=== PATIENT | female | born 1970 | race American Indian/Alaskan Native ===

== ENCOUNTER 2021-06-15 14:19 | Emergency (ER) | payer OTHER ==
--- NOTE | 2021-06-15 15:17 | Emergency Department Report ---
ED Female HPI - General Chief complaint: Vaginal Bleeding Stated complaint: MENSTRAL ISSUES Time Seen by Provider: 06/15/21 15:01 Source: patient Mode of arrival: Ambulatory Limitations: No Limitations - History of Present Illness Initial comments: Patient is a 50-year-old female presents emergency room complaints of heavy vaginal bleeding that began 2 weeks ago. She states over the last few months her menstrual cycles have become very irregular and she believes she may be perimenopausal. She states typically with her menstrual cycles she has bleeding for 3 to 5 days. She states that she last saw a cloth printing back tender a year ago. she states that she has never had an abnormal Pap smear. Patient states that she has an appointment with a cloth printing back tender on 06/27/2021. She states that she is changing her pad approximately every 30 minutes. she states that she began having generalized weakness and had fatigue. She denies any fever, nausea, vomiting, diarrhea, urinary symptoms, abnormal vaginal discharge. No past medical history. No allergies to medications. - Related Data Previous Rx's Medication Instructions Recorded Last Taken Type Docusate Sodium [Colace] 100 mg PO BID #60 capsule 06/15/21 Unknown Rx Ferrous Sulfate [Ferrous Sulfate 324 mg PO DAILY #30 tablet. 06/15/21 Unknown Rx 324 MG] medroxyPROGESTERone ACETATE 10 mg PO QDAY 10 Days #10 tablet 06/15/21 Unknown Rx [Provera] Allergies Allergy/AdvReac Type Severity Reaction Status Date / Time No Known Allergies Allergy Unverified 06/15/21 15:56 ED Review of Systems ROS: Stated complaint: MENSTRAL ISSUES Other details as noted in HPI Comment: All other systems reviewed and negative ED Past Medical Hx - Past Medical History Previous Medical History?: No - Surgical History Past Surgical History?: No - Medications Home Medications: Home Medications Medication Instructions Recorded Confirmed Last Taken Type Docusate Sodium [Colace] 100 mg PO BID #60 capsule 06/15/21 Unknown Rx Ferrous Sulfate [Ferrous Sulfate 324 mg PO DAILY #30 tablet. 06/15/21 Unknown Rx 324 MG] medroxyPROGESTERone ACETATE 10 mg PO QDAY 10 Days #10 tablet 06/15/21 Unknown Rx [Provera] ED Physical Exam - General Limitations: No Limitations General appearance: alert, in no apparent distress - Head Head exam: Present: atraumatic, normocephalic - Eye Eye exam: Present: normal appearance - ENT ENT exam: Present: mucous membranes moist - Respiratory Respiratory exam: Present: normal lung sounds bilaterally. Absent: respiratory distress, wheezes, rales, rhonchi, stridor, chest wall tenderness, accessory muscle use, decreased breath sounds, prolonged expiratory - Cardiovascular Cardiovascular Exam: Present: regular rate, normal rhythm, normal heart sounds. Absent: systolic murmur, diastolic murmur, rubs, gallop - GI/Abdominal GI/Abdominal exam: Present: soft, normal bowel sounds. Absent: distended, tenderness, guarding, rebound, rigid - Neurological Exam Neurological exam: Present: alert, oriented X3 - Psychiatric Psychiatric exam: Present: normal affect, normal mood - Skin Skin exam: Present: warm, dry, intact ED Course Vital Signs 06/15/21 06/15/21 14:30 15:52 Temperature 98.1 F Pulse Rate 107 H 80 Respiratory 16 14 Rate Blood Pressure 117/84 115/76 [Left] O2 Sat by Pulse 98 100 Oximetry ED Medical Decision Making - Lab Data Result diagrams: 06/15/21 15:11 06/15/21 15:11 Lab Results 06/15/21 06/15/21 06/15/21 Range/Units 15:11 15:11 15:11 WBC 8.5 (4.5-11.0) K/mm3 RBC 2.75 L (3.65-5.03) M/mm3 Hgb 8.5 L (10.1-14.3) gm/dl Hct 25.5 L (30.3-42.9) % MCV 93 (79-97) fl MCH 31 (28-32) pg MCHC 33 (30-34) % RDW 14.6 (13.2-15.2) % Plt Count 293 (140-440) K/mm3 Lymph % (Auto) 23.1 (13.4-35.0) % [place] % (Auto) 4.2 (0.0-7.3) % Eos % (Auto) 1.0 (0.0-4.3) % Baso % (Auto) 0.9 (0.0-1.8) % Lymph # (Auto) 2.0 (1.2-5.4) K/mm3 [place] # (Auto) 0.4 (0.0-0.8) K/mm3 Eos # (Auto) 0.1 (0.0-0.4) K/mm3 Baso # (Auto) 0.1 (0.0-0.1) K/mm3 Seg Neutrophils % 70.8 H (40.0-70.0) % Seg Neutrophils # 6.0 (1.8-7.7) K/mm3 Sodium 135 L (137-145) mmol/L Potassium 3.4 L (3.6-5.0) mmol/L Chloride 100.8 (98-107) mmol/L Carbon Dioxide 24 (22-30) mmol/L Anion Gap 14 mmol/L BUN 16 (7-17) mg/dL Creatinine 0.7 (0.6-1.2) mg/dL Estimated GFR > 60 ml/min BUN/Creatinine Ratio 23 % Glucose 96 (65-100) mg/dL Calcium 8.9 (8.4-10.2) mg/dL Total Bilirubin < 0.20 (0.1-1.2) mg/dL AST 13 (5-40) units/L ALT 10 (7-56) units/L Alkaline Phosphatase 86 (35-129) units/L Total Protein 6.3 (6.3-8.2) g/dL Albumin 3.7 L (3.9-5) g/dL Albumin/Globulin Ratio 1.4 % HCG, Quant < 2 (0-4) mIU/mL - Medical Decision Making Patient is a 50-year-old female presents emergency room complaints of heavy vaginal bleeding that began 2 weeks ago. She states over the last few months h er menstrual cycles have become very irregular and she believes she may be perimenopausal. She states typically with her menstrual cycles she has bleeding for 3 to 5 days. She states that she last saw a cloth printing back tender a year ago. she states that she has never had an abnormal Pap smear. Patient states that she has an appointment with a cloth printing back tender on 06/27/2021. She states that she is changing her pad approximately every 30 minutes. she states that she began having generalized weakness and had fatigue. She denies any fever, nausea, vomiting, diarrhea, urinary symptoms, abnormal vaginal discharge. No past medical history. No allergies to medications. Initial vitals with mild tachycardia which improved to normal upon repeat. Patient has no abdominal tenderness on exam. Patient has been in the emergency department for a couple of hours and is only had to change her pad 1 time. Labs are stable. Hemoglobin is 8.5. Patient has mild hypokalemia, repeated with K-Dur. Patient given prescription for Provera, ferrous sulfate, Colace. discussed the importance of outpatient MILL CRANE OPERATOR follow-up regarding AUB. advised pt Please take medication as prescribed. Please follow-up with your primary care doctor. Please follow-up with your MILL CRANE OPERATOR. Return to emergency room for any new or worsening symptoms. Critical care attestation.: If time is entered above; I have spent that time in minutes in the direct care of this critically ill patient, excluding procedure time. ED Disposition Clinical Impression: Hypokalemia Anemia Qualifiers: Anemia type: unspecified type Qualified Code(s): D64.9 - Anemia, unspecified Menorrhagia Qualifiers: Menorrhagia type: with irregular cycle Qualified Code(s): N92.1 - Excessive and frequent menstruation with irregular cycle Disposition: 01 HOME / SELF CARE / HOMELESS Is pt being admited?: No Does the pt Need Aspirin: No Condition: Stable Instructions: Hypokalemia, Menorrhagia Additional Instructions: Please take medication as prescribed. Please follow-up with your primary care doctor. Please follow-up with your MILL CRANE OPERATOR. Return to emergency room for any new or worsening symptoms. Prescriptions: Docusate Sodium [Colace] 100 mg PO BID #60 capsule Ferrous Sulfate [Ferrous Sulfate 324 MG] 324 mg PO DAILY #30 tablet. medroxyPROGESTERone ACETATE [Provera] 10 mg PO QDAY 10 Days #10 tablet Referrals: your, primary care doctor [Other] - 3-5 Days your, yardage control clerk [Other] - 3-5 Days Time of Disposition: 15:50 Print Language: AZERI
[2021-06-15 15:32] LABS: Basophils # (Auto) 0.1 K/mm3 (0.0-0.1); Basophils % (Auto) 0.9 % (0.0-1.8); Eosinophils # (Auto) 0.1 K/mm3 (0.0-0.4); Hematocrit 25.5 % (30.3-42.9); Hemoglobin 8.5 gm/dl (10.1-14.3); Lymphocytes % (Auto) 23.1 % (13.4-35.0); Mean Corpuscular HGB Conc 33 % (30-34); Mean Corpuscular Volume 93 fl (79-97); Monocytes # (Auto) 0.4 K/mm3 (0.0-0.8); Monocytes % (Auto) 4.2 % (0.0-7.3); Platelet Count 293 K/mm3 (140-440); Red Blood Count 2.75 M/mm3 (3.65-5.03); Red Cell Distribution Width 14.6 % (13.2-15.2)
[2021-06-15 15:44] LABS: Alanine Aminotransferase 10 units/L (7-56); Albumin 3.7 g/dL (3.9-5); Blood Urea Nitrogen 16 mg/dL (7-17); Calcium 8.9 mg/dL (8.4-10.2); Hemolysis Index 9
[2021-06-15] MEDS ORDERED: POTASSIUM CHLORIDE ER 20 MEQ TAB PO ONE (15:46)
[2021-06-15 15:47] LABS: BUN/Creatinine Ratio 23
[2021-06-15 15:53] VITALS: BP 115/76
== END 2021-06-15 16:33 | disposition home or self-care (01) ==
LOC: ED 14:19
DX: N92.0 Excessive and frequent menstruation with regular cycle (principal); E87.6 Hypokalemia; D64.9 Anemia, unspecified
CPT/HCPCS: 36415; 80053; 84702; 85025; 99283

== ENCOUNTER 2022-04-18 11:01 | Emergency (ER) | payer OTHER ==
[2022-04-18 14:15] LABS: Mucus,Urine FEW /HPF; WBC,Urine < 1.0 /HPF (0.0-6.0)
[2022-04-18 14:29] LABS: Bilirubin,Urine Negative (Negative); Blood,Urine Negative (Negative); Color,Urine Straw (Yellow)
[2022-04-18 14:30] LABS: HCG Qualitative,Urine Negative (Negative); Protein,Urine 300 mg/dL mg/dL (Negative)
--- NOTE | 2022-04-18 15:25 | XRay Report ---
ABDOMEN 1 VIEW(S) INDICATION / CLINICAL INFORMATION: abdominal pain, unable to have bm. COMPARISON: None available. FINDINGS: TUBES / LINES: None. BOWEL GAS PATTERN: There is moderate fecal matter throughout the colon and rectum. No dilated bowel i s appreciated. FREE AIR / EXTRALUMINAL GAS: None seen. ADDITIONAL FINDINGS: No significant additional findings. IMPRESSION: Moderate fecal retention in the colon Signer Name: Elgin Verde Jr, MD Signed: 04/18/2022 3:21 PM Workstation Name: [id number]
[2022-04-18] MEDS ORDERED: MAGNESIUM CITRATE 300 ML ORAL LIQD PO ONE (15:59)
--- NOTE | 2022-04-18 16:01 | Emergency Department Report ---
ED Abdominal Pain HPI - General Chief Complaint: Abdominal Pain Stated Complaint: CONSTIPATION Time Seen by Provider: 04/18/22 12:57 Source: patient Mode of arrival: Ambulatory Limitations: No Limitations - History of Present Illness Initial Comments: 51 yo black female with a pmh of HTN and HLD presents to ED for the evaluation of lower abdominal pain. She states that she has not been able to have a bm for the past 2-3 days and she usually has at least 1 bm daily. She states that she has had some nausea but denies fever, dysuria, and vaginal discharge. Of note, she states that she recently started taking iron pills. MD Complaint: abdominal pain -: days(s) (2) Location: LLQ Radiation: none Migration to: no migration Severity: moderate Severity scale (0 -10): 8 Quality: aching Consistency: intermittent Associated Symptoms: nausea, constipation. denies: vomiting, fever, chills, dysuria, hematemesis, hematochezia, melena, hematuria, anorexia, syncope - Related Data Previous Rx's Medication Instructions Recorded Last Taken Type Docusate Sodium [Colace] 100 mg PO BID #60 capsule 06/15/21 Unknown Rx Ferrous Sulfate [Ferrous Sulfate 324 mg PO DAILY #30 tablet.dr 06/15/21 Unknown Rx 324 MG] medroxyPROGESTERone ACETATE 10 mg PO QDAY 10 Days #10 tablet 06/15/21 Unknown Rx [Provera] Polyethylene Glycol 3350 [Miralax] 17 g PO DAILY #1 bottle 04/18/22 Unknown Rx Allergies Allergy/AdvReac Type Severity Reaction Status Date / Time No Known Allergies Allergy Unverified 06/15/21 15:56 ED Review of Systems ROS: Stated complaint: CONSTIPATION Other details as noted in HPI Comment: All other systems reviewed and negative Constitutional: denies: chills, fever Respiratory: denies: cough, shortness of breath Cardiovascular: denies: chest pain, palpitations Gastrointestinal: abdominal pain, nausea. denies: vomiting, diarrhea, hematemesis, melena, hematochezia Genitourinary: denies: urgency, dysuria, frequency, hematuria, discharge Musculoskeletal: denies: back pain Neurological: denies: headache, weakness ED Past Medical Hx - Past Medical History Previous Medical History?: Yes Hx Hypertension: Yes Additional medical history: hdl - Medications Home Medications: Home Medications Medication Instructions Recorded Confirmed Last Taken Type Docusate Sodium [Colace] 100 mg PO BID #60 capsule 06/15/21 Unknown Rx Ferrous Sulfate [Ferrous Sulfate 324 mg PO DAILY #30 tablet.dr 06/15/21 Unknown Rx 324 MG] medroxyPROGESTERone ACETATE 10 mg PO QDAY 10 Days #10 tablet 06/15/21 Unknown Rx [Provera] Polyethylene Glycol 3350 [Miralax] 17 g PO DAILY #1 bottle 04/18/22 Unknown Rx ED Physical Exam - General Limitations: No Limitations General appearance: alert, in no apparent distress - Head Head exam: Present: atraumatic, normocephalic - Eye Eye exam: Present: normal appearance. Absent: conjunctival injection - Neck Neck exam: Present: normal inspection. Absent: lymphadenopathy - Respiratory Respiratory exam: Present: normal lung sounds bilaterally. Absent: respiratory distress, wheezes, rales, rhonchi, stridor, chest wall tenderness - Cardiovascular Cardiovascular Exam: Present: regular rate, normal heart sounds - GI/Abdominal GI/Abdominal exam: Present: soft, tenderness (LLQ), normal bowel sounds. Absent: distended, guarding, rebound, rigid - Extremities Exam Extremities exam: Present: normal inspection, full ROM, normal capillary refill. Absent: tenderness, pedal edema, joint swelling, calf tenderness - Back Exam Back exam: Present: normal inspection. Absent: CVA tenderness (R), CVA tenderness (L) - Neurological Exam Neurological exam: Present: alert, oriented X3 - Psychiatric Psychiatric exam: Present: normal affect, normal mood - Skin Skin exam: Present: warm, dry, intact, normal color ED Course Vital Signs 04/18/22 04/18/22 12:06 16:10 Temperature 98.6 F 98.2 F Pulse Rate 69 84 Respiratory 18 16 Rate Blood Pressure 133/85 129/86 [Left] O2 Sat by Pulse 99 96 Oximetry ED Medical Decision Making - Radiology Data Radiology results: report reviewed, image reviewed KUB: FINDINGS: TUBES / LINES: None. BOWEL GAS PATTERN: There is moderate fecal matter throughout the colon and rectum. No dilated bowel is appreciated. FREE AIR / EXTRALUMINAL GAS: None seen. ADDITIONAL FINDINGS: No significant additional findings. IMPRESSION: Moderate fecal retention in the colon - Medical Decision Making 51 yo black female with a pmh of HTN and HLD presents to ED for the evaluation of lower abdominal pain. She states that she has not been able to have a bm for the past 2-3 days and she usually has at least 1 bm daily. She states that she has had some nausea but denies fever, dysuria, and vaginal discharge. Of note, she states that she recently started taking iron pills. KUB positive for constipation. Urine wnl. Patient given 1 bottle of mag citrate in ED then discharged home with miralax. She is advised to follow up with her pcp if no improvement or worsening symptoms and return to ED for any concerning symptoms. She verbalizes understanding of and agreement with plan of care. Critical care attestation.: If time is entered above; I have spent that time in minutes in the direct care of this critically ill patient, excluding procedure time. ED Disposition Clinical Impression: Constipation Qualifiers: Constipation type: unspecified constipation type Qualified Code(s): K59.00 - Constipation, unspecified Disposition: 01 HOME / SELF CARE / HOMELESS Is pt being admited?: No Does the pt Need Aspirin: No Condition: Stable Instructions: Constipation, Adult, [id number], Abdominal Pain (ED) Additional Instructions: Take medications as prescribed. Follow-up with your primary care provider if no improvement or worsening symptoms. Return to the emergency department as needed. Prescriptions: Polyethylene Glycol 3350 [Miralax] 17 g PO DAILY #1 bottle Referrals: PRIMARY CARE [Primary Care Provider] - 3-5 Days Forms: Work/School Release Form(ED) Time of Disposition: 16:01
[2022-04-18 16:33] VITALS: BP 129/86
== END 2022-04-18 16:30 | disposition home or self-care (01) ==
LOC: ED 11:01
DX: K59.00 Constipation, unspecified (principal); I10 Essential (primary) hypertension
CPT/HCPCS: 74018; 81001; 81025; 99283